=== PATIENT | female | born 1995 ===

== ENCOUNTER 2023-12-26 11:06 | Emergency (ER) | payer OTHER ==
[~2023-12-26] VITALS: Ht 167.6 cm; Wt 59.5 kg
[~2023-12-26 11:06] MED LIST: IBU800 M1 PO; PRENATAL TABLET PO
[2023-12-26 11:11] VITALS: TEMP 98.3
[2023-12-26] MEDS ORDERED: Ketorolac 30 MG/ML VIAL IM ONE (13:00)
[2023-12-26 13:05] LABS: COLLECTION METHOD CLEAN CATCH
[2023-12-26 13:12] LABS: BASO % 0.5 % (0.0-2.0); EOS # 0.2 K/mm3 (0.0-0.7); EOS % 2.5 % (0.0-4.0); GRAN # 3.5 K/mm3 (1.4-6.5); GRAN % 56.7 % (42.2-75.2); HEMATOCRIT 44.4 % (37.0-47.0); HEMOGLOBIN 15.5 g/dl (12.5-16.0); LYMPH % 33.1 % (20.0-51.0); MEAN CELL VOLUME 87 fl (80.0-100.0); MEAN CORPUSCULAR HEMOGLOBIN 30 pg (27-31); MEAN CORPUSCULAR HGB CONC 35 g/dl (33.0-37.0); MEAN PLATELET VOLUME 9.5 fl (7.4-10.4); MONO # 0.4 K/mm3 (0.1-0.6); PLATELET COUNT 228 K/mm3 (130-400); RED BLOOD COUNT 5.12 M/mm3 (4.10-5.30); REDCELL DISTRIBUTION WIDTH-CV 12.6 % (11.5-14.5)
[2023-12-26 13:31] LABS: URINE APPEARANCE Clear (CLEAR/HAZY); URINE BLOOD 3+ (NEGATIVE); URINE COLOR Yellow (YELLOW); URINE GLUCOSE Negative (NEGATIVE); URINE KETONE 1+ (NEGATIVE); URINE NITRATE Negative (NEGATIVE); URINE PROTEIN(semi-quant) Negative (NEGATIVE); URINE UROBILINOGEN 0.2 E.U/dL (0.2-1.0)
[2023-12-26 13:47] VITALS: BP 132/77
[2023-12-26 14:00] VITALS: PULSE 64
== END 2023-12-26 14:01 | disposition home or self-care (01) ==
LOC: COL.ER 11:06
PROVIDERS: Physician Assistant
DX: O03.9 Complete or unspecified spontaneous abortion without complication (principal)
CPT/HCPCS: J1885

== ENCOUNTER 2024-07-17 09:29 | Emergency (ER) | payer OTHER ==
[~2024-07-17] VITALS: Ht 167.6 cm; Wt 59.1 kg
[2024-07-17 09:45] VITALS: BP 116/76; TEMP 97.2
[2024-07-17] MEDS ORDERED: Ibuprofen 600 MG TAB PO ONE (11:30)
[2024-07-17] MEDS ORDERED: oxyCODONE/Acetaminophen 5-325 MG TAB PO ONE (11:30)
[2024-07-17 12:32] VITALS: PULSE 71
== END 2024-07-17 13:15 | disposition home or self-care (01) ==
LOC: COL.ER 09:29
DX: S93.401A Sprain of unspecified ligament of right ankle, initial encounter (principal); X50.1XXA Overexertion from prolonged static or awkward postures, initial encounter; Y93.01 Activity, walking, marching and hiking